=== PATIENT | female | born 1985 | race Native Hawaiian/Other Pacific Islander ===

== ENCOUNTER 2019-12-10 15:27 | Outpatient (CLI) | payer OTHER ==
[2019-12-10 15:55] LABS: PLATELET COUNT 215 K/uL (152-353)
[2019-12-10 16:01] LABS: POTASSIUM 3.7 mmol/L (3.6-5.2)
== END 2019-12-10 20:12 | disposition home or self-care (01) ==
LOC: LABW 15:27
PROVIDERS: Nurse Practitioner Family
DX: R19.7 Diarrhea, unspecified (principal); R10.9 Unspecified abdominal pain; R11.2 Nausea with vomiting, unspecified
CPT/HCPCS: 36415; 80053; 85027; 87015; 87045; 87899